=== PATIENT | male | born 1955 | race Hispanic/Latino ===

== ENCOUNTER 2018-07-06 06:01 | Inpatient (IN) | payer OTHER ==
--- NOTE | 2018-07-06 06:41 | ED PDOC ---
Arrival/HPI - General Historian: Patient - History of Present Illness Narrative History of Present Illness (Text): 07/06/18 06:37 Patient is a 62 yo male with no known medical history who presents with abdominal pain and bloating. Patient states that he started feeling upper abdo ana pain on Monday. He says this is associated with abdominal bloating. He also had one episode of dizziness on Monday while working out. The pain worsens when he leans forward. The pain goes away when he is lying flat. He reports that he works out daily and takes multiple supplements, including testosterone injections, which he has been doing for many years. He denies nausea, vomiting, diarrhea, and constipation. He denies appetite changes. He denies chest pain and palpitations. He notes increased work of breathing for the past 2 days. Patient states he has not seen a medical doctor in over 2 years. Time/Duration: < week Symptom Onset: Gradual Symptom Course: Worsening Severity Level: 7 <Azul Levin - Last Filed: 07/06/18 07:05> <Filipe Paige - Last Filed: 07/06/18 19:08> - General Chief Complaint: Chest Pain Time Seen by Provider: 07/06/18 06:36 Past Medical History - Provider Review Nursing Documentation Reviewed: Yes - Infectious Disease Hx of Infectious Diseases: None - Cardiac Hx Cardiac Disorders: No - Pulmonary Hx Respiratory Disorders: No - Neurological Hx Neurological Disorder: No - HEENT Hx HEENT Disorder: No - Renal Hx Renal Disorder: No - Endocrine/Metabolic Hx Endocrine Disorders: No - Hematological/Oncological Hx Blood Disorders: No - Integumentary Hx Dermatological Disorder: No - Musculoskeletal/Rheumatological Hx Musculoskeletal Disorders: No - Gastrointestinal Hx Gastrointestinal Disorders: No - Genitourinary/Gynecological Hx Genitourinary Disorders: No - Psychiatric Hx Psychophysiologic Disorder: No Hx Substance Use: No - Surgical History Other/Comment: right knee surgery - Anesthesia Hx Anesthesia: No <Azul Levin - Last Filed: 07/06/18 07:05> Family/Social History Family/Social History: CAD/MO (paternal- multiple deaths from MIs in 40s) Smoking Status: Never Smoked Hx Alcohol Use: No Hx Substance Use: No <Azul Levin - Last Filed: 07/06/18 07:05> Allergies/Home Meds <Azul Levin - Last Filed: 07/06/18 07:05> <ChristianajessicaFilipe - Last Filed: 07/06/18 19:08> Allergies/Adverse Reactions: Allergies No Known Allergies Allergy (Verified 12/10/16 13:55) Home Medications: Home Meds Medication Instructions Recorded Confirmed No Known Home Med 12/10/16 12/10/16 Review of Systems - Review of Systems Constitutional: absent: Fatigue, Fevers Eyes: absent: Vision Changes ENT: absent: Hearing Changes Respiratory: SOB. absent: Cough Cardiovascular: absent: Chest Pain, Palpitations, Edema Gastrointestinal: Abdominal Pain. absent: Constipation, Diarrhea, Nausea, Vomiting Genitourinary Male: absent: Dysuria, Hematuria Musculoskeletal: absent: Arthralgias, Myalgias Skin: absent: Rash, Pruritis, Skin Lesions Neurological: absent: Headache, Dizziness, Focal Weakness Endocrine: absent: Diaphoresis Hemo/Lymphatic: absent: Adenopathy Psychiatric: absent: Anxiety <Azul Levin - Last Filed: 07/06/18 07:05> Physical Exam Vital Signs Reviewed: Yes Vital Signs Temp Pulse Resp BP Pulse Ox 07/06/18 06:10 97.1 F L 180 H 20 140/110 H 96 Temperature: Afebrile Blood Pressure: Hypertensive Pulse: Tachycardic Respiratory Rate: Normal Appearance: Positive for: Non-Toxic, Comfortable Pain Distress: None Mental Status: Positive for: Alert and Oriented X 3 - Systems Exam Head: Present: Atraumatic, Normocephalic Pupils: Present: PERRL Extroacular Muscles: Present: EOMI Conjunctiva: Present: Normal Mouth: Present: Moist Mucous Membranes Respiratory/Chest: Present: Clear to Auscultation, Good Air Exchange Cardiovascular: Present: Tachycardic Abdomen: Present: Tenderness (mild upper). No: Distention, Rebound, Guarding Back: Present: Normal Inspection Upper Extremity: Present: Normal Inspection Lower Extremity: Present: Normal Inspection. No: Edema Neurological: Present: GCS=15, CN II-XII Intact, Speech Normal, Motor Func Grossly Intact, Normal Sensory Function Skin: Present: Warm, Dry, Normal Color Psychiatric: Present: Alert, Oriented x 3, Normal Insight, Normal Concentration, Normal Affect, Normal Mood <Azul Levin - Last Filed: 07/06/18 07:05> Vital Signs Temp Pulse Resp BP Pulse Ox 07/06/18 11:32 99.3 F 129 H 18 117/60 98 07/06/18 10:39 133 H 19 122/81 95 07/06/18 08:45 137 H 22 119/80 95 07/06/18 08:25 128/61 07/06/18 07:45 145 H 20 128/61 94 L 07/06/18 06:59 123 H 18 123/66 96 07/06/18 06:47 140 H 20 124/81 96 07/06/18 06:41 177 H 140/110 H 07/06/18 06:40 177 H 140/110 H 07/06/18 06:30 145 H 18 139/81 97 07/06/18 06:26 177 H 20 143/96 H 97 07/06/18 06:10 97.1 F L 180 H 20 140/110 H 96 <Filipe Paige - Last Filed: 07/06/18 19:08> Medical Decision Making ED Course and Treatment: 07/06/18 06:30 Patient noted to be tachycardic in 170s-180s. Attempted vagal maneuvers without improvement. Administered Adenosine 6 mg IVP without improvement. EKG sent to Dr. Álvarez who reads it as Atrial flutter. Administered Cardizem 20 mg IVP. HR decreased to 150s. Started Cardizem drip. 07/06/18 06:53 Administer another Cardizem 20 mg IVP. HR decreased to 120s-130s. - RAD Interpretation Radiology Orders: 07/06/18 06:35 CHEST PORTABLE [RAD] Stat Well Blower: ED Physician - EKG Interpretation EKG Interpretation (Text): 07/06/18 06:47 Atrial flutter (HR 178) Interpreted by ED Physician: Yes Type: 12 lead EKG Comparison: No previous EKG avail. - Medication Orders Current Medication Orders: Adenosine (Adenosine 6 Mg/2 Ml Inj) 6 mg IVP STAT STA Stop: 07/06/18 06:36 Diltiazem HCl (Cardizem) 20 mg IVP STAT STA Stop: 07/06/18 06:36 diltiaZEM IVPB 100mg in NS (Cardizem 100mg In Ns) 100 mls @ 5 mls/hr IV .Q20H PRN; Protocol PRN Reason: TITRATE PER MD ORDER <Azul Levin - Last Filed: 07/06/18 07:05> - Lab Interpretations Lab Results: PT 14.5 SECONDS (9.4-12.5) H 07/06/18 06:20 INR 1.28 07/06/18 06:20 APTT 37.6 Seconds (26.9-38.3) 07/06/18 14:20 Troponin I 0.16 ng/mL H* 07/06/18 09:24 NT-Pro-B Natriuret Pep 3400 pg/mL (0-450) H 07/06/18 06:20 Total Bilirubin 0.7 mg/dL (0.2-1.3) 07/06/18 06:20 AST 61 U/L (17-59) H 07/06/18 06:20 ALT 57 U/L (7-56) H 07/06/18 06:20 Alkaline Phosphatase 73 U/L (38-126) 07/06/18 06:20 Total Protein 6.9 g/dL (5.8-8.3) 07/06/18 06:20 Albumin 3.6 g/dL (3.0-4.8) 07/06/18 06:20 Globulin 3.3 gm/dL 07/06/18 06:20 Albumin/Globulin Ratio 1.1 (1.1-1.8) 07/06/18 06:20 Urine Color Yellow (YELLOW) 07/06/18 08:42 Urine Appearance Clear (CLEAR) 07/06/18 08:42 Urine pH 6.0 (4.7-8.0) 07/06/18 08:42 Ur Specific [place] 1.025 (1.005-1.035) 07/06/18 08:42 Urine Protein Trace mg/dL (<30 mg/dL) H 07/06/18 08:42 Urine Glucose (UA) Negative mg/dL (NEGATIVE) 07/06/18 08:42 Urine Ketones 15 mg/dL (NEGATIVE) H 07/06/18 08:42 Urine Blood Large (NEGATIVE) H 07/06/18 08:42 Urine Nitrate Negative (NEGATIVE) 07/06/18 08:42 Urine Bilirubin Small (NEGATIVE) H 07/06/18 08:42 Urine Urobilinogen 0.2 E.U./dL (<1 E.U./dL) 07/06/18 08:42 Ur Leukocyte Esterase Negative Carlos/uL (NEGATIVE) 07/06/18 08:42 Urine RBC 20 - 25 /hpf (0-2) H 07/06/18 08:42 Urine WBC 1 - 3 /hpf (0-6) 07/06/18 08:42 Ur Epithelial Cells None /hpf (0-5) 07/06/18 08:42 Urine Bacteria Mod /hpf (NONE) 07/06/18 08:42 - RAD Interpretation Radiology Orders: 07/06/18 06:35 CHEST PORTABLE [RAD] Stat - Medication Orders Current Medication Orders: Acetaminophen (Tylenol 325mg Tab) 650 mg PO Q6H PRN PRN Reason: Fever >100.4 F Famotidine (Pepcid) 20 mg PO 1000,2200 ZULY Last Admin: 07/06/18 10:24 Dose: 20 mg diltiaZEM IVPB 100mg in NS (Cardizem 100mg In Ns) 100 mls @ 5 mls/hr IV .Q20H PRN; Protocol PRN Reason: TITRATE PER MD ORDER Last Admin: 07/06/18 14:30 Dose: 20 mg/hr, 20 mls/hr eMAR Start Stop Document 07/06/18 14:30 [facility] (Rec: 07/06/18 14:50 [facility] [id number] Intravenous Solution Start Date 07/06/18 Start Time 14:30 MAR Pulse Rate Document 07/06/18 14:30 RAMOM (Rec: 07/06/18 14:50 [facility] [id number]) Pulse Rate Pulse Rate (60-90) 111 Titration Intervention Document 07/06/18 14:30 RAMOM (Rec: 07/06/18 14:50 [facility] [id number]) Titration Intake Cumulative Intake (Rx) 90 Waste Amount 0 Container Volume 100 Titration Dosing Titration Dose 20 IV Rate 20 Intake/Decrease Started/Running Cumulative Dose 90 Heparin Sodium/Sodium Chloride (Heparin 58452 Units/250ml 1/2 Normal Saline) 25,000 units in 250 mls @ 20.82 mls/hr IV .Q12H1M PRN; Protocol PRN Reason: ADJUST RATE PER PROTOCOL Last Titration: 07/06/18 16:50 Dose: 20 units/kg/hr, 23.133 mls/hr Titration Intervention Document 07/06/18 16:50 [facility] (Rec: 07/06/18 16:57 [facility] [id number]) Titration Intake Container Volume 27 Titration Dosing Titration Dose 20 IV Rate 23.133 Intake/Decrease Started Sodium Chloride (Sodium Chloride 0.9%) 1,000 mls @ 75 mls/hr IV .[id number] ZULY Last Admin: 07/06/18 12:27 Dose: 75 mls/hr eMAR Start Stop Document 07/06/18 12:27 RAMOM (Rec: 07/06/18 12:27 [facility] [id number]) Intravenous Solution Start Date 07/06/18 Start Time 12:30 Ondansetron HCl (Zofran Inj) 4 mg IVP Q6H PRN PRN Reason: Nausea/Vomiting Discontinued Medications Adenosine (Adenosine 6 Mg/2 Ml Inj) 6 mg IVP STAT STA Stop: 07/06/18 06:36 Last Admin: 07/06/18 06:40 Dose: 6 mg IVP Administration Document 07/06/18 06:40 MA (Rec: 07/06/18 06:40 [id number] Charges for Administration # of IVP Administrations 1 Aspirin (Aspirin Chewable) 324 mg PO STAT STA Stop: 07/06/18 07:20 Last Admin: 07/06/18 07:44 Dose: 324 mg Digoxin (Lanoxin) 0.25 mg IVP ONCE ONE Stop: 07/06/18 09:52 Last Admin: 07/06/18 10:23 Dose: 0.25 mg MAR Apical Pulse Rate Document 07/06/18 10:23 LA (Rec: 07/06/18 10:24 LA [id number]) Apical Pulse Rate Apical Pulse Rate (60-90 beats/min) 155 IVP Administration Document 07/06/18 10:23 LA (Rec: 07/06/18 10:24 LA [id number]) Charges for Administration # of IVP Administrations 1 Digoxin (Lanoxin) 0.25 mg IVP ONCE ONE Stop: 07/06/18 14:01 Last Admin: 07/06/18 13:08 Dose: 0.25 mg MAR Apical Pulse Rate Document 07/06/18 13:08 [facility] (Rec: 07/06/18 13:08 [facility] [id number]) Apical Pulse Rate Apical Pulse Rate (60-90 beats/min) 127 IVP Administration Document 07/06/18 13:08 [facility] (Rec: 07/06/18 13:08 [facility] [id number] Charges for Administration # of IVP Administrations 1 Diltiazem HCl (Cardizem) 20 mg IVP STAT STA Stop: 07/06/18 06:36 Last Admin: 07/06/18 06:40 Dose: 20 mg IVP Administration Document 07/06/18 06:40 MA (Rec: 07/06/18 06:40 MA [id number]) Charges for Administration # of IVP Administrations 1 MAR Pulse and Blood Pressure Document 07/06/18 06:40 MA (Rec: 07/06/18 06:40 MA [id number]) Pulse Pulse Rate (60-90) 177 Blood Pressure Blood Pressure (100/60-150/90) 140/110 Diltiazem HCl (Cardizem) 20 mg IVP STAT STA Stop: 07/06/18 06:54 Last Admin: 07/06/18 06:47 Dose: 20 mg IVP Administration Document 07/06/18 06:47 MA (Rec: 07/06/18 07:05 MA [id number]) Charges for Administration # of IVP Administrations 1 MAR Pulse and Blood Pressure Document 07/06/18 06:47 MA (Rec: 07/06/18 07:05 MA [id number]) Pulse Pulse Rate (60-90) 140 Blood Pressure Blood Pressure (100/60-150/90) 128/81 Furosemide (Lasix) 40 mg IVP STAT STA Stop: 07/06/18 07:53 Last Admin: 07/06/18 08:25 Dose: 40 mg MAR Blood Pressure Document 07/06/18 08:25 MA (Rec: 07/06/18 08:26 MA [id number]) Blood Pressure Blood Pressure (100/60-150/90) 128/61 IVP Administration Document 07/06/18 08:25 MA (Rec: 07/06/18 08:26 MA [id number]) Charges for Administration # of IVP Administrations 1 Heparin Sodium (Porcine) (Heparin) 4,000 units IV ONCE ONE; Protocol Stop: 07/06/18 07:51 Last Admin: 07/06/18 08:27 Dose: 4,000 units eMAR Start Stop Document 07/06/18 08:27 MA (Rec: 07/06/18 08:28 [facility] [id number] Intravenous Solution Start Date 07/06/18 Start Time 08:28 Heparin Sodium (Porcine) (Heparin) 4,400 units IV STAT STA Stop: 07/06/18 17:00 Last Admin: 07/06/18 17:07 Dose: 4,400 units eMAR Start Stop Document 07/06/18 17:07 RAM[facility] (Rec: 07/06/18 17:07 [id number] Intravenous Solution Start Date 07/06/18 Start Time 17:05 End Date 07/06/18 End time 17:10 Total Infusion Time 5 MAR aPTT Document 07/06/18 17:07 RAM[facility] (Rec: 07/06/18 17:07 [id number] aPTT aPTT (secs) 37.6 <Filipe Paige - Last Filed: 07/06/18 19:08> - PA / JAVA LEAD / Resident Statement GUILLERMO has reviewed & agrees with the documentation as recorded. GUILLERMO has examined the patient and agrees with the treatment plan. <Filipe Paige - Last Filed: 07/06/18 19:08> Disposition/Present on Arrival - Present on Arrival Any Indicators Present on Arrival: No History of DVT/PE: No History of Uncontrolled Diabetes: No Urinary Catheter: No History of Decub. Ulcer: No History Surgical Site Infection Following: None - Disposition Have Diagnosis and Disposition been Completed?: Yes Disposition Time: 07:05 Patient Plan: Admission, Telemetry <Azul Levin - Last Filed: 07/06/18 07:05> <Filipe Paige - Last Filed: 07/06/18 19:08> - Disposition Diagnosis: Atrial flutter with rapid ventricular response, NSTEMI (non-ST elevated myocardial infarction) Disposition: HOSPITALIZED Condition: SERIOUS
[2018-07-06 06:47] LABS: BASO # 0.03 K/mm3 (0.0-2.0); BASO % 0.2 % (0.0-3.0); EOS # 0.2 (0.0-0.7); HEMOGLOBIN 14.3 g/dL (14.0-18.0); LYMPH # 3.4 (1.2-3.4); LYMPH % 20.9 % (22.0-35.0); MEAN CELL VOLUME 92.2 fl (80.0-105.0); MEAN CORPUSCULAR HGB CONC 32.5 g/dl (31.0-37.0); MEAN PLATELET VOLUME 9.6 fl (7.0-11.0); MONO % 6.4 % (1.0-6.0); RBC 4.77 10^6/uL (3.5-6.1); RED CELL DISTRIBUTION WIDTH 15.6 % (11.5-14.5); WHITE BLOOD COUNT 16.2 10^3/uL (4.5-11.0)
[2018-07-06] MEDS: diltiaZEM IVPB 100mg in NS 100 ML IV PRN ×3 (06:50→20:59)
[2018-07-06 06:56] LABS: INR 1.28; PARTIAL THROMBOPLASTIN TIME 26.5 Seconds (26.9-38.3); PROTHROMBIN TIME 14.5 SECONDS (9.4-12.5)
[2018-07-06 06:58] LABS: ALB/GLOB RATIO 1.1 (1.1-1.8); ALBUMIN 3.6 g/dL (3.0-4.8); CALCIUM 8.1 mg/dL (8.4-10.5)
[2018-07-06 07:15] LABS: FREE T4 1.12 ng/dL (0.78-2.19)
[2018-07-06 07:18] LABS: CK-MB 4.9 ng/mL (0.0-3.6); TROPONIN I 0.15 ng/mL
[2018-07-06] MEDS ORDERED: Heparin25000 units/250ml 1/2NS 25,000 UNITS/250 ML BAG IV PRN (07:20)
--- NOTE | 2018-07-06 07:25 | ED PDOC ---
Physical Exam Vital Signs Temp Pulse Resp BP Pulse Ox 07/06/18 06:59 123 H 18 123/66 96 07/06/18 06:47 140 H 20 124/81 96 07/06/18 06:41 177 H 140/110 H 07/06/18 06:40 177 H 140/110 H 07/06/18 06:30 145 H 18 139/81 97 07/06/18 06:26 177 H 20 143/96 H 97 07/06/18 06:10 97.1 F L 180 H 20 140/110 H 96 Medical Decision Making ED Course and Treatment: 07/06/18 07:00 Case endorsed to me by Dr. Jamison. Pending labs and final disposition. 07/06/18 07:53 patient apparently presented to the ED with chief complaint of abdominal pain, found to be very tachycardic, ekg revealed atrial flutter with rvr. patient was medicated and eventually started on cardizem drip. troponin noted to be elevated and aspirin/heparin ordered by me. at this time the heart rate is 135 on laboratory monitor and i have asked the nurse to increase the cardizem drip to 10mg/hr and to repeat ekg once the heart rate is slower. 07/06/18 08:[address] grubbs, dr. higgins for cardiology, requests echo, agrees with icu admission 07/06/18 08:[address] Ruiz, assurance senior manager, who will see patient in consultation. 07/06/18 08:[address] higgins, topographic computator, would like hold on lab systems analyst and he will see the patient in consultation - Critical Care Critical Care Minutes: 60 minutes - Lab Interpretations Lab Results: PT 14.5 SECONDS (9.4-12.5) H 07/06/18 06:20 INR 1.28 07/06/18 06:20 APTT 26.5 Seconds (26.9-38.3) L 07/06/18 06:20 Troponin I 0.15 ng/mL H* 07/06/18 06:20 NT-Pro-B Natriuret Pep 3400 pg/mL (0-450) H 07/06/18 06:20 Total Bilirubin 0.7 mg/dL (0.2-1.3) 07/06/18 06:20 AST 61 U/L (17-59) H 07/06/18 06:20 ALT 57 U/L (7-56) H 07/06/18 06:20 Alkaline Phosphatase 73 U/L (38-126) 07/06/18 06:20 Total Protein 6.9 g/dL (5.8-8.3) 07/06/18 06:20 Albumin 3.6 g/dL (3.0-4.8) 07/06/18 06:20 Globulin 3.3 gm/dL 07/06/18 06:20 Albumin/Globulin Ratio 1.1 (1.1-1.8) 07/06/18 06:20 - RAD Interpretation Narrative RAD Interpretations (Text): 07/06/18 07:53 cxr my read: pulmonary edema, no ptx, no wide mediastinum Radiology Orders: 07/06/18 06:35 CHEST PORTABLE [RAD] Stat Solar Systems Designer: ED Physician - EKG Interpretation EKG Interpretation (Text): 07/06/18 07:52 ekg my read 0618: atrial flutter at 178 bpm, nml qrs, nml axis 07/06/18 08:22 ekg my read 0804: atrial flutter at 135 bpm, nml qrs, nml axis, lateral st depression Interpreted by ED Physician: Yes - Medication Orders Current Medication Orders: diltiaZEM IVPB 100mg in NS (Cardizem 100mg In Ns) 100 mls @ 5 mls/hr IV .Q20H PRN; Protocol PRN Reason: TITRATE PER MD ORDER Last Admin: 07/06/18 06:50 Dose: 5 mls/hr eMAR Start Stop Document 07/06/18 06:50 MA (Rec: 07/06/18 06:51 [place] [facility] [id number] Intravenous Solution Start Date 07/06/18 Start Time 06:48 Heparin Sodium/Sodium Chloride (Heparin 24790 Units/250ml 1/2 Normal Saline) 25,000 units in 250 mls @ 20.003 mls/hr IV .H27R69M PRN; Protocol PRN Reason: ADJUST RATE PER PROTOCOL Discontinued Medications Adenosine (Adenosine 6 Mg/2 Ml Inj) 6 mg IVP STAT STA Stop: 07/06/18 06:36 Last Admin: 07/06/18 06:40 Dose: 6 mg IVP Administration Document 07/06/18 06:40 MA (Rec: 07/06/18 06:40 [place] [facility] [id number] Charges for Administration # of IVP Administrations 1 Aspirin (Aspirin Chewable) 324 mg PO STAT STA Stop: 07/06/18 07:20 Diltiazem HCl (Cardizem) 20 mg IVP STAT STA Stop: 07/06/18 06:36 Last Admin: 07/06/18 06:40 Dose: 20 mg IVP Administration Document 07/06/18 06:40 MA (Rec: 07/06/18 06:40 [place] [facility] [id number] Charges for Administration # of IVP Administrations 1 MAR Pulse and Blood Pressure Document 07/06/18 06:40 MA (Rec: 07/06/18 06:40 [place] [facility] [id number] Pulse Pulse Rate (60-90) 177 Blood Pressure Blood Pressure (100/60-150/90) 140/110 Diltiazem HCl (Cardizem) 20 mg IVP STAT STA Stop: 07/06/18 06:54 Last Admin: 07/06/18 06:47 Dose: 20 mg IVP Administration Document 07/06/18 06:47 MA (Rec: 07/06/18 07:05 [place] [facility] [id number] Charges for Administration # of IVP Administrations 1 MAR Pulse and Blood Pressure Document 07/06/18 06:47 MA (Rec: 07/06/18 07:05 [place] [facility] [id number] Pulse Pulse Rate (60-90) 140 Blood Pressure Blood Pressure (100/60-150/90) 128/81 Heparin Sodium (Porcine) (Heparin) 4,000 units IV ONCE ONE; Protocol Stop: 07/06/18 07:21 - Scribe Statement The provider has reviewed the documentation as recorded by the Gilles Rios Provider Scribe Attestation: All medical record entries made by the Gilles were at my direction and personally dictated by me. I have reviewed the chart and agree that the record accurately reflects my personal performance of the history, physical exam, medical decision making, and the department course for this patient. I have also personally directed, reviewed, and agree with the discharge instructions and disposition. Disposition/Present on Arrival - Present on Arrival Any Indicators Present on Arrival: No History of DVT/PE: No History of Uncontrolled Diabetes: No Urinary Catheter: No History of Decub. Ulcer: No History Surgical Site Infection Following: None - Disposition Have Diagnosis and Disposition been Completed?: Yes Diagnosis: Atrial flutter with rapid ventricular response, NSTEMI (non-ST elevated myocardial infarction) Disposition: HOSPITALIZED Disposition Time: 08:05 Patient Plan: Admission, ICU Patient Problems: Current Active Problems Problem Status Onset Atrial flutter with rapid ventricular response Acute NSTEMI (non-ST elevated myocardial infarction) Acute Condition: FAIR Forms: Inherited Health (Divehi)
[2018-07-06 07:29] LABS: T3 0.93 ng/mL (0.97-1.69)
[2018-07-06] MEDS ORDERED: diltiaZEM IVPB 100mg in NS 100 ML IV PRN (08:15)
[2018-07-06] MEDS: Heparin25000 units/250ml 1/2NS 25,000 UNITS/250 ML BAG IV PRN ×2 (08:28→19:40)
[2018-07-06 08:54] LABS: URINE BILIRUBIN SMALL (NEGATIVE); URINE BLOOD LARGE (NEGATIVE); URINE GLUCOSE (UA) NEGATIVE (NEGATIVE); URINE LEUKOCYTE ESTERASE NEGATIVE Leu/uL (NEGATIVE); URINE PROTEIN TRACE mg/dL (<30 mg/dL); URINE UROBILINOGEN 0.2 E.U./dL (<1 E.U./dL)
[2018-07-06 09:12] LABS: URINE APPEARANCE CLEAR (CLEAR); URINE COLOR YELLOW (YELLOW)
[2018-07-06 09:15] LABS: URINE BACTERIA MOD /hpf; URINE RBC 20 - 25 /hpf (0-2)
[2018-07-06 09:26] LABS: BARBITURATES, UR NEGATIVE (NEGATIVE); BENZODIAZEPINES, UR NEGATIVE (NEGATIVE); OPIATES, UR NEGATIVE (NEGATIVE); PHENCYCLIDINE, UR NEGATIVE (NEGATIVE)
[2018-07-06] MEDS ORDERED: Digoxin 500 mcg/2ml (0.5 mg/2ml) Inj IVP ONE ×2 (09:51→14:00)
--- NOTE | 2018-07-06 10:23 | CP.PCM.CON ---
History of Present Illness - History of Present Illness History of Present Illness: MICU CONSULT NOTE HPI Patient is 62yo male with PMhx of steroid abuse, supplement usage, very active (lifts weights), presents from home with abdominal discomfort. Pt reports abd discomfort is diffuse, without any fever, chills, N/V/D. Pt found to be in new onset aflutter on EKG, started on Cardizem drip, and Heparin drip. Pt also given lasix 40mg IV X 1. Currently on Cardizem drip at 10mg/hr, HR 130s Seen by cardiology, Dr Garcia. Pt denies SOB, CP, palpitations, BROWN, dizziness, recent travel, LE swelling. No other constitutional symptoms. PMHx NONE PSHx knee Surgery FHx CAD Social denies smoking, EtOH, drug usep; uses creatinine, IV steroids Allergies NKDA ROS as above Review of Systems - Review of Systems Review of Systems: as per HPI Past Patient History - Infectious Disease Hx of Infectious Diseases: None - Past Social History Smoking Status: Never Smoked - CARDIAC Hx Cardiac Disorders: No - PULMONARY Hx Respiratory Disorders: No - NEUROLOGICAL Hx Neurological Disorder: No - HEENT Hx HEENT Problems: No - RENAL Hx Chronic Kidney Disease: No - ENDOCRINE/METABOLIC Hx Endocrine Disorders: No - HEMATOLOGICAL/ONCOLOGICAL Hx Blood Disorders: No - INTEGUMENTARY Hx Dermatological Problems: No - MUSCULOSKELETAL/RHEUMATOLOGICAL Hx Musculoskeletal Disorders: No - GASTROINTESTINAL Hx Gastrointestinal Disorders: No - GENITOURINARY/GYNECOLOGICAL Hx Genitourinary Disorders: No - PSYCHIATRIC Hx Psychophysiologic Disorder: No Hx Substance Use: No - SURGICAL HISTORY Other/Comment: right knee surgery - ANESTHESIA Hx Anesthesia: No Meds Allergies/Adverse Reactions: Allergies Allergy/AdvReac Type Severity Reaction Status Date / Time No Known Allergies Allergy Verified 12/10/16 13:55 - Medications Medications: Current Medications Digoxin (Lanoxin) 0.25 mg IVP ONCE ONE Stop: 07/06/18 14:01 Famotidine (Pepcid) 20 mg PO 1000,2200 ZULY diltiaZEM IVPB 100mg in NS (Cardizem 100mg In Ns) 100 mls @ 5 mls/hr IV .Q20H PRN; Protocol PRN Reason: TITRATE PER MD ORDER Last Admin: 07/06/18 06:50 Dose: 5 mls/hr Heparin Sodium/Sodium Chloride (Heparin 24661 Units/250ml 1/2 Normal Saline) 25,000 units in 250 mls @ 20.82 mls/hr IV .Q12H1M PRN; Protocol PRN Reason: ADJUST RATE PER PROTOCOL Last Admin: 07/06/18 08:28 Dose: 20.82 mls/hr Physical Exam - Constitutional Appears: Non-toxic, No Acute Distress - Head Exam Head Exam: NORMAL INSPECTION - Eye Exam Eye Exam: Normal appearance - ENT Exam ENT Exam: Mucous Membranes Moist - Neck Exam Neck exam: Positive for: Full Rom - Respiratory Exam Respiratory Exam: Clear to Auscultation Bilateral, NORMAL BREATHING PATTERN - Cardiovascular Exam Cardiovascular Exam: Tachycardia, Irregular Rhythm, +S1, +S2 - GI/Abdominal Exam GI & Abdominal Exam: Normal Bowel Sounds, Soft - Extremities Exam Extremities exam: Positive for: normal inspection - Back Exam Back exam: NORMAL INSPECTION - Neurological Exam Neurological exam: Alert, Oriented x3 - Psychiatric Exam Psychiatric exam: Normal Mood - Skin Skin Exam: Normal Color, Warm Results - Vital Signs Recent Vital Signs: Last Vital Signs Temp 97.1 F L 07/06/18 06:10 Pulse 137 H 07/06/18 08:45 Resp 22 07/06/18 08:45 BP 119/80 07/06/18 08:45 Pulse Ox 95 07/06/18 08:45 - Labs Result Diagrams: 07/06/18 06:20 07/06/18 06:20 Labs: Laboratory Results - last 24 hr 07/06/18 07/06/18 07/06/18 06:20 06:20 06:20 WBC 16.2 H RBC 4.77 Hgb 14.3 Hct 44.0 MCV 92.2 MCH 30.0 MCHC 32.5 RDW 15.6 H Plt Count 368 MPV 9.6 Neut % (Auto) 71.5 H Lymph % (Auto) 20.9 L [place] % (Auto) 6.4 H Eos % (Auto) 1.0 L Baso % (Auto) 0.2 Lymph # (Auto) 3.4 [place] # (Auto) 1.0 H Eos # (Auto) 0.2 Baso # (Auto) 0.03 Absolute Neuts (auto) 11.58 H PT 14.5 H INR 1.28 APTT 26.5 L Sodium 136 Potassium 5.0 Chloride 102 Carbon Dioxide 26 Anion Gap 14 BUN 24 H Creatinine 1.7 H Est GFR ( Amer) 50 Est GFR (Non-Af Amer) 41 Random Glucose 97 Calcium 8.1 L Magnesium 1.9 Total Bilirubin 0.7 AST 61 H ALT 57 H Alkaline Phosphatase 73 Lactate Dehydrogenase 564 Total Creatine Kinase 346 H CK-MB (CK-2) 4.9 H CK-MB (CK-2) % Cancelled Troponin I 0.15 H* NT-Pro-B Natriuret Pep 3400 H Total Protein 6.9 Albumin 3.6 Globulin 3.3 Albumin/Globulin Ratio 1.1 Free T4 Total T3 TSH 3rd Generation Urine Color Urine Appearance Urine pH Ur Specific [place] Urine Protein Urine Glucose (UA) Urine Ketones Urine Blood Urine Nitrate Urine Bilirubin Urine Urobilinogen Ur Leukocyte Esterase Urine RBC Urine WBC Ur Epithelial Cells Urine Bacteria Urine Opiates Screen Urine Methadone Screen Ur Barbiturates Screen Ur Phencyclidine Scrn Ur Amphetamines Screen U Benzodiazepines Scrn U Oth Cocaine Metabols U Cannabinoids Screen 07/06/18 07/06/18 07/06/18 06:20 08:42 08:42 WBC RBC Hgb Hct MCV MCH MCHC RDW Plt Count MPV Neut % (Auto) Lymph % (Auto) [place] % (Auto) Eos % (Auto) Baso % (Auto) Lymph # (Auto) [place] # (Auto) Eos # (Auto) Baso # (Auto) Absolute Neuts (auto) PT INR APTT Sodium Potassium Chloride Carbon Dioxide Anion Gap BUN Creatinine Est GFR ( Amer) Est GFR (Non-Af Amer) Random Glucose Calcium Magnesium Total Bilirubin AST ALT Alkaline Phosphatase Lactate Dehydrogenase Total Creatine Kinase CK-MB (CK-2) CK-MB (CK-2) % Troponin I NT-Pro-B Natriuret Pep Total Protein Albumin Globulin Albumin/Globulin Ratio Free T4 1.12 Total T3 0.93 L TSH 3rd Generation 3.65 Urine Color Yellow Urine Appearance Clear Urine pH 6.0 Ur Specific [place] 1.025 Urine Protein Trace H Urine Glucose (UA) Negative Urine Ketones 15 H Urine Blood Large H Urine Nitrate Negative Urine Bilirubin Small H Urine Urobilinogen 0.2 Ur Leukocyte Esterase Negative Urine RBC 20 - 25 H Urine WBC 1 - 3 Ur Epithelial Cells None Urine Bacteria Mod Urine Opiates Screen Negative Urine Methadone Screen Negative Ur Barbiturates Screen Negative Ur Phencyclidine Scrn Negative Ur Amphetamines Screen Negative U Benzodiazepines Scrn Negative U Oth Cocaine Metabols Negative U Cannabinoids Screen Negative - Imaging and Cardiology Chest x-ray Status: Image reviewed by me Assessment & Plan - Assessment and Plan (Free Text) Assessment: 62yo male with new onset Aflutter/Afib Aflutter/Afib VENKATA Steroid Abuse Abd pain - currently afebrile, HD stable, HR 130s, in NAD - Abd pain resolved - Seen by cardiology, consult appreciated Recommend: - supp o2 as needed, duonebs PRN - panculture, UCx, BCx, Check Procal - Rate control, Cardizem drip, Digoxin loading - Heparin drip - ECHO - cardiology consult - GI ppx - DVT ppx - Admit to CCU
--- NOTE | 2018-07-06 11:07 | RAD ---
Date of service: 07/06/2018 HISTORY: chest pain COMPARISON: No prior. FINDINGS: LUNGS: The lungs are well inflated. There is mild pulmonary venous congestion PLEURA: No pleural effusions or pneumothorax. CARDIOVASCULAR: There is moderate cardiomegaly with prominent central vasculature. No aortic atherosclerotic calcifications present. OSSEOUS STRUCTURES: Within normal limits for the patient's age. VISUALIZED UPPER ABDOMEN: Normal. OTHER FINDINGS: None. IMPRESSION: No active pulmonary disease. Moderate cardiomegaly and mild pulmonary venous congestion.
[2018-07-06] MEDS: Sodium Chloride 0.9% 1,000 ML IV SCH (12:27)
[2018-07-06 12:52] LABS: CK-MB 4.1 ng/mL (0.0-3.6)
[2018-07-06 13:09] VITALS: PULSE 127
[2018-07-06 15:55] VITALS: BMI 33.9
--- NOTE | 2018-07-06 16:57 | CARD ---
APPROVED REPORT Date of service: 07/06/2018 EKG Measurement Heart [id number] <Conclusion> Atrial flutter with variable AV block with premature ventricular or aberrantly conducted complexes Non specific T-wave changes Abnormal Electrocardiogram
--- NOTE | 2018-07-06 16:58 | CARD ---
APPROVED REPORT Date of service: 07/06/2018 EKG Measurement Heart [id number] <Conclusion> Atrial flutter with 2:1 block Non specific T-wave changes Abnormal Electrocardiogram
--- NOTE | 2018-07-06 16:58 | CARD ---
APPROVED REPORT Date of service: 07/06/2018 EKG Measurement Heart [id number] MA [id number] <Conclusion> Atrial flutter with 2:1 block Non specific T-wave changes Abnormal Electrocardiogram
--- NOTE | 2018-07-06 19:22 | CARD ---
APPROVED REPORT Date of service: 07/06/2018 EKG Measurement Heart [id number] <Conclusion> Atrial flutter with variable AV block with premature ventricular or aberrantly conducted complexes ST & T wave abnormalities Little change from previous tracing Abnormal ECG
[2018-07-06 21:46] LABS: HEPATITIS B SURFACE AG Negative (NEGATIVE)
[2018-07-06 21:52] LABS: HEPATITIS A IGM NEGATIVE (NEGATIVE); HEPATITIS B CORE AB NEGATIVE (NEGATIVE)
[2018-07-06 22:04] LABS: HEPATITIS C ANTIBODY NEGATIVE (NEGATIVE)
[2018-07-07] MEDS: diltiaZEM IVPB 100mg in NS 100 ML IV PRN (01:08)
[2018-07-07] MEDS: Sodium Chloride 0.9% 1,000 ML IV SCH ×2 (03:15→15:05)
[2018-07-07 05:23] VITALS: TEMP 98.6
--- NOTE | 2018-07-07 05:55 | CON ---
DATE: 07/06/2018 REQUESTING PHYSICIAN: Dr. Hollingsworth. REASON FOR CONSULTATION: Dyspnea, tachycardia. HISTORY OF PRESENT ILLNESS: This is a 62-year-old man with a history of borderline hypertension, who presented to the emergency room complaining of dyspnea and epigastric discomfort. He also had lightheadedness. He was noted to be in atrial flutter with variable conduction with heart rate in the 180s. He was started on IV Cardizem. His rate has slowed, but he remains in atrial flutter. He still feels somewhat lightheaded. His abdominal discomfort has improved. He denies any chest pain or severe dyspnea. He is unaware of any prior cardiac issues. PAST MEDICAL HISTORY: His past history is notable for the problems mentioned above. He underwent knee surgery involving his right knee many years ago for a meniscus tear. MEDICATIONS AT HOME: None. FAMILY HISTORY: Multiple paternal family members had premature heart disease in their 40s and 50s. SOCIAL HISTORY: He does not smoke or drink. He does lift heavy weights and goes to the gym regularly. He also uses testosterone, creatine, and other supplements. ALLERGIES: NONE. SOCIAL HISTORY: He does not smoke or drink. REVIEW OF SYSTEMS: A 12-point review of systems is otherwise unremarkable. He denies any chest discomfort, PND, or orthopnea. PHYSICAL EXAMINATION: GENERAL: He is a muscular middle-aged man. VITAL SIGNS: His blood pressure was 126/50 with a pulse of 120, in atrial flutter; respirations are 16; he is afebrile. HEENT: Head normocephalic, atraumatic. NECK: Supple, thick with no JVD present. CHEST: Few scattered rhonchi heard. HEART: PMI displaced laterally with a rapid rhythm. A soft systolic murmur is present in left sternal border. ABDOMEN: Soft, nontender. Normoactive bowel sounds. EXTREMITIES: No clubbing, cyanosis, edema. SKIN: Warm and dry. PSYCHIATRIC: Normal mood and affect. NEUROLOGIC: Alert and oriented x3. No gross motor or sensory deficits notable. DIAGNOSTIC DATA: White count 16.2, hemoglobin and hematocrit 14.3 and 44 with platelet count of 368,000. PT/PTT 14.5 and 26.5. Potassium 5, BUN and creatinine are 24 and 1.7. AST and ALT are 61 and 57. CK 346 with a negative MB fraction. Troponin 0.15, repeat is 0.16. TSH at 3.65. Toxicology screen was negative. Electrocardiogram reveals atrial flutter with rapid and variable conduction. Chest x-ray reveals increased cardiac silhouette with clear lung henry. IMPRESSION: 1. Atrial flutter with variable rapid conduction, not controlled with IV diltiazem. 2. Renal insufficiency, etiology to be determined. 3. 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 RECOMMENDATIONS: Telemetry monitoring is advisable. IV diltiazem will be continued for now. IV digoxin will be added for rate control at the present time. If he does not convert to sinus rhythm spontaneously, plans can be made for medical or chemical cardioversion. An echocardiogram will be obtained to assess his left ventricular size and function and degree of left ventricular hypertrophy present. Anticoagulant therapy will be continued for now and final decision made regarding long-term options should they be necessary. Followup evaluation of his elevated transaminases is advised as well. Thank you for this consultation. We will be happy to follow along through his hospital course. Deniz Glynn MD
[2018-07-07 06:01] LABS: BASO # 0.03 K/mm3 (0.0-2.0); BASO % 0.3 % (0.0-3.0); EOS # 0.3 (0.0-0.7); EOS % 2.5 % (1.5-5.0); HEMOGLOBIN 12.8 g/dL (14.0-18.0); LYMPH # 2.8 (1.2-3.4); LYMPH % 26.1 % (22.0-35.0); MEAN CELL VOLUME 91.2 fl (80.0-105.0); MEAN CORPUSCULAR HEMOGLOBIN 29.8 pg (25.0-35.0); MEAN CORPUSCULAR HGB CONC 32.7 g/dl (31.0-37.0); MEAN PLATELET VOLUME 9.2 fl (7.0-11.0); MONO # 0.9 (0.1-0.6); MONO % 8.6 % (1.0-6.0); RBC 4.3 10^6/uL (3.5-6.1); RED CELL DISTRIBUTION WIDTH 15.8 % (11.5-14.5); WHITE BLOOD COUNT 10.7 10^3/uL (4.5-11.0)
[2018-07-07 06:09] LABS: ALB/GLOB RATIO 1.1 (1.1-1.8); ALT/SGPT 51 U/L (7-56); AST/SGOT 39 U/L (17-59); BLOOD UREA NITROGEN 17 mg/dL (7-21); CALCIUM 7.3 mg/dL (8.4-10.5); GFR NON-AFRICAN AMERICAN 51; HDL CHOLESTEROL 8 mg/dL (29-60)
[2018-07-07 06:18] LABS: LDL CHOLESTEROL 137 mg/dL (0-129)
[2018-07-07] MEDS: Heparin25000 units/250ml 1/2NS 25,000 UNITS/250 ML BAG IV PRN ×2 (06:24→17:22)
[2018-07-07] MEDS ORDERED: Calcium Gluconate in NS 1 GM/50 ML BAG IV ONE (07:11)
[2018-07-07 08:24] LABS: IRON 48 ug/dL (45-180)
--- NOTE | 2018-07-07 08:27 | CARD ---
APPROVED REPORT Date of service: 07/06/2018 EXAM: Two-dimensional and M-mode echocardiogram with Doppler and color Doppler. INDICATION Atrial Fibrillation 2D DIMENSIONS Left Atrium (2D)4.5 (1.6-4.0cm)IVSd1.3 (0.7-1.1cm) LVDd5.4 (3.9-5.9cm)PWd1.4 (0.7-1.1cm) LVDs4.3 (2.5-4.0cm)FS (%) 20.5 % LVEF (%)42.0 (>50%) M-Mode DIMENSIONS Aortic Root4.10 (2.2-3.7cm)Aortic Cusp Exc.1.90 (1.5-2.0cm) Aortic Valve AoV Peak Zrsqiurt619.0cm/Janet Peak GR.7mmHg Mitral Valve E/A ratio0.0 TDI E/Lateral E'0.0E/Medial E'0.0 Pulmonary Valve PV Peak Vmbmxhjm13.7cm/sPV Peak Grad.1mmHg Tricuspid Valve TR Peak [id number]/sRAP [id number] Peak Gr.27mmHg [id number] LEFT VENTRICLE The left ventricle is normal size. There is mild to moderate concentric left ventricular hypertrophy. The systolic function is mildly to moderately impaired. There is global hypokinesis of the left ventricle. RIGHT VENTRICLE The right ventricle is normal size. The right ventricular systolic function is normal. ATRIA The left atrium is moderately dilated. The right atrium is moderately dilated. The interatrial septum is intact with no evidence for an atrial septal defect. AORTIC VALVE The aortic valve is mildly sclerotic. There is mild aortic regurgitation. There is no aortic valvular stenosis. MITRAL VALVE The mitral valve is mildly thickened. Mitral regurgitation is moderate. TRICUSPID VALVE The tricuspid valve is normal in structure. There is mild tricuspid regurgitation. PULMONIC VALVE The pulmonary valve is normal in structure. GREAT VESSELS The aortic root is normal in size. The IVC is normal in size and collapses >50% with inspiration. PERICARDIAL EFFUSION There is no pleural effusion. There is no pericardial effusion. <Conclusion> Biatrial enlargement. Mild to moderate concentric LVH. Patient in atrial flutter with variable ventricular response which limits ability to accurately assess LV function but it does appear mild to moderately reduced. Unable to assess segmetal wall motion adequately due to rhythm variablity. Mild AI. Moderate MR. Mild TR.
[2018-07-07 08:33] LABS: % IRON SATURATION 18 % (20-55); TOTAL IRON BINDING CAPACITY 265 ug/dL (261-462)
--- NOTE | 2018-07-07 09:46 | US ---
Date of service: 07/06/2018 HISTORY: elevated lfts and azotemia COMPARISON: None. TECHNIQUE: Sonographic evaluation of the abdomen. FINDINGS: LIVER: Enlarged, measuring 18.7 cm. Normal echogenicity of the liver parenchyma. No mass. No intrahepatic bile duct dilatation. GALLBLADDER: Unremarkable. No gallstones. COMMON BILE DUCT: Measures 5 mm. No stones. No dilatation. PANCREAS: Unremarkable as visualized. No mass. No ductal dilatation. RIGHT KIDNEY: Measures 12.5 x 4.5 x 6.7cm. Normal echogenicity. No calculus, mass, or hydronephrosis. LEFT KIDNEY: Measures 12.4 x 7.0 x 6.2cm. Normal echogenicity. No calculus, mass, or hydronephrosis. SPLEEN: Normal in size and contour. No mass. AORTA: No aneurysmal dilatation. IVC: Unremarkable. OTHER FINDINGS: Trace right pleural effusion. IMPRESSION: Mild hepatomegaly. Trace right pleural effusion.
--- NOTE | 2018-07-07 11:56 | CP.CCUPN ---
<Paulo Green - Last Filed: 07/07/18 11:48> CCU Subjective - Physician Review Subjective (Free Text): 07/07/18 11:48 Paulo Green PGY-1 Critical Care Progress Note Patient seen and evaluated at bedside. Patient currently on IVF and Heparin drip. Cardizem drip was discontinued overnight. Denies current chest pain, palpitations, shortness of breath, abdominal pain, nausea, vomiting, dizziness and headaches. CCU Objective - Vital Signs / Intake & Output Vital Signs (Last 4 hours): Vital Signs Pulse Resp BP Pulse Ox 07/07/18 08:00 82 19 121/72 95 Intake and Output (Last 8hrs): Intake & Output 07/06/18 07/07/18 07/07/18 22:59 06:59 14:59 Intake Total 1181 2002 Output Total 700 700 Balance 481 1302 Weight 118.75 kg Intake: IV 941 1762 Left Antecubital 525 900 cardizem 140 200 heparin 149 312 Oral 240 240 Output: Urine 700 700 Urine, Voided 700 700 Stool 0 Emesis 0 Other: # Voids Urine, Voided 2 3 # Bowel Movements 1 1 - Physical Exam Head: Positive for: Atraumatic, Normocephalic Pupils: Positive for: PERRL Extroacular Muscles: Positive for: EOMI Conjunctiva: Positive for: Normal Mouth: Positive for: Moist Mucous Membranes Respiratory/Chest: Positive for: Clear to Auscultation, Good Air Exchange Cardiovascular: Negative for: Tachycardic Abdomen: Negative for: Tenderness, Distention, Rebound, Guarding Back: Positive for: Normal Inspection Upper Extremity: Positive for: Normal Inspection Lower Extremity: Positive for: Normal Inspection. Negative for: Edema Neurological: Positive for: GCS=15, CN II-XII Intact, Speech Normal, Motor Func Grossly Intact, Normal Sensory Function Skin: Positive for: Warm, Dry, Normal Color Psychiatric: Positive for: Alert, Oriented x 3, Normal Insight, Normal Concentration, Normal Affect, Normal Mood - Medications Active Medications: Active Medications Generic Name Dose Route Start Last Admin Trade Name Freq PRN Reason Stop Dose Admin Acetaminophen 650 mg 07/06/18 13:24 Tylenol 325mg Tab PO Q6H PRN Fever >100.4 F Famotidine 20 mg 07/06/18 10:00 07/07/18 09:17 Pepcid PO 20 mg 1000,2200 ZULY Administration Heparin Sodium/Sodium Chloride 25,000 units in 250 mls @ 20.82 mls/hr 07/06/18 07:50 07/07/18 06:24 Heparin 90433 Units/250ml 1/2 Normal Saline IV 20 units/kg/hr .Q12H1M PRN 23.133 mls/hr ADJUST RATE PER PROTOCOL Administration Protocol 18 UNITS/KG/HR Sodium Chloride 1,000 mls @ 75 mls/hr 07/06/18 12:15 07/07/18 03:15 Sodium Chloride 0.9% IV 75 mls/hr .[id number] ZULY Administration Ondansetron HCl 4 mg 07/06/18 13:25 Zofran Inj IVP Q6H PRN Nausea/Vomiting - Patient Studies Lab Studies: Lab Studies 07/07/18 07/07/18 07/07/18 Range/Units 08:10 05:35 05:35 WBC (4.5-11.0) 10^3/uL RBC (3.5-6.1) 10^6/uL Hgb (14.0-18.0) g/dL Hct (42.0-52.0) % MCV (80.0-105.0) fl MCH (25.0-35.0) pg MCHC (31.0-37.0) g/dl RDW (11.5-14.5) % Plt Count (120.0-450.0) 10^3/uL MPV (7.0-11.0) fl Neut % (Auto) (50.0-68.0) % Lymph % (Auto) (22.0-35.0) % Reeves % (Auto) (1.0-6.0) % Eos % (Auto) (1.5-5.0) % Baso % (Auto) (0.0-3.0) % Lymph # (Auto) (1.2-3.4) Reeves # (Auto) (0.1-0.6) Eos # (Auto) (0.0-0.7) Baso # (Auto) (0.0-2.0) K/mm3 Absolute Neuts (auto) (1.4-6.5) APTT 69.4 H (26.9-38.3) Seconds Sodium 137 (132-148) mmol/L Potassium 3.9 (3.6-5.0) mmol/L Chloride 104 (98-107) mmol/L Carbon Dioxide 25 (21-33) mmol/L Anion Gap 12 (10-20) BUN 17 (7-21) mg/dL Creatinine 1.4 (0.8-1.5) mg/dl Est GFR ( Amer) > 60 Est GFR (Non-Af Amer) 51 Random Glucose 98 (70-110) mg/dL Calcium 7.3 L (8.4-10.5) mg/dL Phosphorus 3.4 (2.5-4.5) mg/dL Magnesium 2.0 (1.7-2.2) mg/dL Iron 48 (45-180) ug/dL TIBC 265 (261-462) ug/dL % Saturation 18 L (20-55) % Total Bilirubin 0.6 (0.2-1.3) mg/dL AST 39 (17-59) U/L ALT 51 (7-56) U/L Alkaline Phosphatase 62 (38-126) U/L Total Creatine Kinase (35-230) U/L CK-MB (CK-2) (0.0-3.6) ng/mL CK-MB (CK-2) % Total Protein 5.8 (5.8-8.3) g/dL Albumin 3.0 (3.0-4.8) g/dL Globulin 2.8 gm/dL Albumin/Globulin Ratio 1.1 (1.1-1.8) Triglycerides 205 H (35-160) mg/dL Cholesterol 157 (130-200) mg/dL LDL Cholesterol Direct 137 H (0-129) mg/dL HDL Cholesterol 8 L (29-60) mg/dL Procalcitonin (0.19-0.49) NG/ML Hepatitis A IgM Ab (NEGATIVE) Hep Bs Antigen (NEGATIVE) Hep B Core IgM Ab (NEGATIVE) Hepatitis C Antibody (NEGATIVE) 07/07/18 07/06/18 07/06/18 Range/Units 05:35 23:20 14:20 WBC 10.7 D (4.5-11.0) 10^3/uL RBC 4.30 (3.5-6.1) 10^6/uL Hgb 12.8 L (14.0-18.0) g/dL Hct 39.2 L (42.0-52.0) % MCV 91.2 (80.0-105.0) fl MCH 29.8 (25.0-35.0) pg MCHC 32.7 (31.0-37.0) g/dl RDW 15.8 H (11.5-14.5) % Plt Count 299 (120.0-450.0) 10^3/uL MPV 9.2 (7.0-11.0) fl Neut % (Auto) 62.5 (50.0-68.0) % Lymph % (Auto) 26.1 (22.0-35.0) % Reeves % (Auto) 8.6 H (1.0-6.0) % Eos % (Auto) 2.5 (1.5-5.0) % Baso % (Auto) 0.3 (0.0-3.0) % Lymph # (Auto) 2.8 (1.2-3.4) Reeves # (Auto) 0.9 H (0.1-0.6) Eos # (Auto) 0.3 (0.0-0.7) Baso # (Auto) 0.03 (0.0-2.0) K/mm3 Absolute Neuts (auto) 6.70 H (1.4-6.5) APTT 45.3 H (26.9-38.3) Seconds Sodium (132-148) mmol/L Potassium (3.6-5.0) mmol/L Chloride (98-107) mmol/L Carbon Dioxide (21-33) mmol/L Anion Gap (10-20) BUN (7-21) mg/dL Creatinine (0.8-1.5) mg/dl Est GFR ( Amer) Est GFR (Non-Af Amer) Random Glucose (70-110) mg/dL Calcium (8.4-10.5) mg/dL Phosphorus (2.5-4.5) mg/dL Magnesium (1.7-2.2) mg/dL Iron (45-180) ug/dL TIBC (261-462) ug/dL % Saturation (20-55) % Total Bilirubin (0.2-1.3) mg/dL AST (17-59) U/L ALT (7-56) U/L Alkaline Phosphatase (38-126) U/L Total Creatine Kinase (35-230) U/L CK-MB (CK-2) (0.0-3.6) ng/mL CK-MB (CK-2) % Total Protein (5.8-8.3) g/dL Albumin (3.0-4.8) g/dL Globulin gm/dL Albumin/Globulin Ratio (1.1-1.8) Triglycerides (35-160) mg/dL Cholesterol (130-200) mg/dL LDL Cholesterol Direct (0-129) mg/dL HDL Cholesterol (29-60) mg/dL Procalcitonin (0.19-0.49) NG/ML Hepatitis A IgM Ab Negative (NEGATIVE) Hep Bs Antigen Negative (NEGATIVE) Hep B Core IgM Ab Negative (NEGATIVE) Hepatitis C Antibody Negative (NEGATIVE) 07/06/18 07/06/18 07/06/18 Range/Units 14:20 11:50 11:50 WBC (4.5-11.0) 10^3/uL RBC (3.5-6.1) 10^6/uL Hgb (14.0-18.0) g/dL Hct (42.0-52.0) % MCV (80.0-105.0) fl MCH (25.0-35.0) pg MCHC (31.0-37.0) g/dl RDW (11.5-14.5) % Plt Count (120.0-450.0) 10^3/uL MPV (7.0-11.0) fl Neut % (Auto) (50.0-68.0) % Lymph % (Auto) (22.0-35.0) % Reeves % (Auto) (1.0-6.0) % Eos % (Auto) (1.5-5.0) % Baso % (Auto) (0.0-3.0) % Lymph # (Auto) (1.2-3.4) Reeves # (Auto) (0.1-0.6) Eos # (Auto) (0.0-0.7) Baso # (Auto) (0.0-2.0) K/mm3 Absolute Neuts (auto) (1.4-6.5) APTT 37.6 (26.9-38.3) Seconds Sodium (132-148) mmol/L Potassium (3.6-5.0) mmol/L Chloride (98-107) mmol/L Carbon Dioxide (21-33) mmol/L Anion Gap (10-20) BUN (7-21) mg/dL Creatinine (0.8-1.5) mg/dl Est GFR ( Amer) Est GFR (Non-Af Amer) Random Glucose (70-110) mg/dL Calcium (8.4-10.5) mg/dL Phosphorus (2.5-4.5) mg/dL Magnesium (1.7-2.2) mg/dL Iron (45-180) ug/dL TIBC (261-462) ug/dL % Saturation (20-55) % Total Bilirubin (0.2-1.3) mg/dL AST (17-59) U/L ALT (7-56) U/L Alkaline Phosphatase (38-126) U/L Total Creatine Kinase 317 H (35-230) U/L CK-MB (CK-2) 4.1 H (0.0-3.6) ng/mL CK-MB (CK-2) % Cancelled Total Protein (5.8-8.3) g/dL Albumin (3.0-4.8) g/dL Globulin gm/dL Albumin/Globulin Ratio (1.1-1.8) Triglycerides (35-160) mg/dL Cholesterol (130-200) mg/dL LDL Cholesterol Direct (0-129) mg/dL HDL Cholesterol (29-60) mg/dL Procalcitonin 0.09 L (0.19-0.49) NG/ML Hepatitis A IgM Ab (NEGATIVE) Hep Bs Antigen (NEGATIVE) Hep B Core IgM Ab (NEGATIVE) Hepatitis C Antibody (NEGATIVE) Laboratory Results - last 24 hr 07/06/18 07/06/18 07/06/18 11:50 11:50 14:20 WBC RBC Hgb Hct MCV MCH MCHC RDW Plt Count MPV Neut % (Auto) Lymph % (Auto) Reeves % (Auto) Eos % (Auto) Baso % (Auto) Lymph # (Auto) Reeves # (Auto) Eos # (Auto) Baso # (Auto) Absolute Neuts (auto) APTT 37.6 Sodium Potassium Chloride Carbon Dioxide Anion Gap BUN Creatinine Est GFR ( Amer) Est GFR (Non-Af Amer) Random Glucose Calcium Phosphorus Magnesium Iron TIBC % Saturation Total Bilirubin AST ALT Alkaline Phosphatase Total Creatine Kinase 317 H CK-MB (CK-2) 4.1 H CK-MB (CK-2) % Cancelled Total Protein Albumin Globulin Albumin/Globulin Ratio Triglycerides Cholesterol LDL Cholesterol Direct HDL Cholesterol Procalcitonin 0.09 L Hepatitis A IgM Ab Hep Bs Antigen Hep B Core IgM Ab Hepatitis C Antibody 07/06/18 07/06/18 07/07/18 14:20 23:20 05:35 WBC 10.7 D RBC 4.30 Hgb 12.8 L Hct 39.2 L MCV 91.2 MCH 29.8 MCHC 32.7 RDW 15.8 H Plt Count 299 MPV 9.2 Neut % (Auto) 62.5 Lymph % (Auto) 26.1 Reeves % (Auto) 8.6 H Eos % (Auto) 2.5 Baso % (Auto) 0.3 Lymph # (Auto) 2.8 Reeves # (Auto) 0.9 H Eos # (Auto) 0.3 Baso # (Auto) 0.03 Absolute Neuts (auto) 6.70 H APTT 45.3 H Sodium Potassium Chloride Carbon Dioxide Anion Gap BUN Creatinine Est GFR ( Amer) Est GFR (Non-Af Amer) Random Glucose Calcium Phosphorus Magnesium Iron TIBC % Saturation Total Bilirubin AST ALT Alkaline Phosphatase Total Creatine Kinase CK-MB (CK-2) CK-MB (CK-2) % Total Protein Albumin Globulin Albumin/Globulin Ratio Triglycerides Cholesterol LDL Cholesterol Direct HDL Cholesterol Procalcitonin Hepatitis A IgM Ab Negative Hep Bs Antigen Negative Hep B Core IgM Ab Negative Hepatitis C Antibody Negative 07/07/18 07/07/18 07/07/18 05:35 05:35 08:10 WBC RBC Hgb Hct MCV MCH MCHC RDW Plt Count MPV Neut % (Auto) Lymph % (Auto) Reeves % (Auto) Eos % (Auto) Baso % (Auto) Lymph # (Auto) Reeves # (Auto) Eos # (Auto) Baso # (Auto) Absolute Neuts (auto) APTT 69.4 H Sodium 137 Potassium 3.9 Chloride 104 Carbon Dioxide 25 Anion Gap 12 BUN 17 Creatinine 1.4 Est GFR ( Amer) > 60 Est GFR (Non-Af Amer) 51 Random Glucose 98 Calcium 7.3 L Phosphorus 3.4 Magnesium 2.0 Iron 48 TIBC 265 % Saturation 18 L Total Bilirubin 0.6 AST 39 ALT 51 Alkaline Phosphatase 62 Total Creatine Kinase CK-MB (CK-2) CK-MB (CK-2) % Total Protein 5.8 Albumin 3.0 Globulin 2.8 Albumin/Globulin Ratio 1.1 Triglycerides 205 H Cholesterol 157 LDL Cholesterol Direct 137 H HDL Cholesterol 8 L Procalcitonin Hepatitis A IgM Ab Hep Bs Antigen Hep B Core IgM Ab Hepatitis C Antibody Radiology Impressions: Radiology Impressions Abdomen Ultrasound 07/06/18 13:27 IMPRESSION: Mild hepatomegaly. Trace right pleural effusion. EKG/Cardiology Studies: Cardiology / EKG Studies 07/07/18 06:00 EKG [ELECTROCARDIOGRAM] Routine Comment: Reason For Exam: A flutter Review of Systems - Review of Systems Review of Systems: 12 point ROS completed and negative except as described in HPI. Critical Care Progress Note - Nutrition Nutrition: Nutrition Category Date Time Status Heart Healthy Diet [DIET] Diets 07/06/18 Lunch Active Assessment/Plan - Assessment and Plan (Free Text) Assessment: Mr. Gagnon is a 62 year old male with new onset Aflutter/Afib, currently being monitored in the ICU. Patient remains hemodynamically stable in no acute distress. Cardio - Aflutter/Afib on admission, converted to NSR in EKG this AM @80 bpm - Cardizem drip discontinued - Received Digoxin 0.25 twice yesterday - currently afebrile, HD stable, HR 80s, in NAD - C/w Heparin drip - Echo revealed EF 42% with moderate concentric LVH, moderately reduced LV function, moderate MR - Dr. Glynn on consult Nephro: - VENKATA, improved - C/w NS @ 75 cc/hr - Calcium repleted, f/u repeat CMP GI: - Abd pain resolved - Tolerating HHD - Abd U/S revealed mild hepatomegaly GI ppx: Pepcid PO BID DVT ppx: Hep drip Patient seen, case reviewed and plan approved by Dr. Melody Ruiz. Paulo Green, PGY-1 <Jamie Ruiz - Last Filed: 07/07/18 14:56> CCU Objective - Vital Signs / Intake & Output Intake and Output (Last 8hrs): Intake & Output 05/31/19 06/01/19 06/01/19 22:59 06:59 14:59 Intake Total 1181 2001 Output Total 700 700 Balance 481 1302 Weight 118.75 kg Intake: IV 941 1762 Left Antecubital 525 900 cardizem 140 200 heparin 149 312 Oral 240 240 Output: Urine 700 700 Urine, Voided 700 700 Stool 0 Emesis 0 Other: # Voids Urine, Voided 2 3 # Bowel Movements 1 1 - Medications Active Medications: Active Medications Generic Name Dose Route Start Last Admin Trade Name Freq PRN Reason Stop Dose Admin Acetaminophen 650 mg 07/06/18 13:24 Tylenol 325mg Tab PO Q6H PRN Fever >100.4 F Apixaban 5 mg 07/07/18 18:00 Eliquis PO BID [facility] Protocol Famotidine 20 mg 07/06/18 10:00 07/07/18 09:17 Pepcid PO 20 mg 1000,2200 ZULY Administration Heparin Sodium/Sodium Chloride 25,000 units in 250 mls @ 20.82 mls/hr 07/06/18 07:50 07/07/18 06:24 Heparin 95025 Units/250ml 1/2 Normal Saline IV 20 units/kg/hr .Q12H1M PRN 23.133 mls/hr ADJUST RATE PER PROTOCOL Administration Protocol 18 UNITS/KG/HR Sodium Chloride 1,000 mls @ 75 mls/hr 07/06/18 12:15 07/07/18 03:15 Sodium Chloride 0.9% IV 75 mls/hr .[id number] ZULY Administration Metoprolol Tartrate 25 mg 07/07/18 17:00 Lopressor PO [facility] Ondansetron HCl 4 mg 07/06/18 13:25 Zofran Inj IVP Q6H PRN Nausea/Vomiting - Patient Studies Lab Studies: Microbiology Studies 07/06/18 14:30 Blood Culture - Preliminary Blood NO GROWTH AFTER 24 HOURS Lab Studies 07/07/18 07/07/18 07/07/18 Range/Units 12:00 12:00 08:10 WBC (4.5-11.0) 10^3/uL RBC (3.5-6.1) 10^6/uL Hgb (14.0-18.0) g/dL Hct (42.0-52.0) % MCV (80.0-105.0) fl MCH (25.0-35.0) pg MCHC (31.0-37.0) g/dl RDW (11.5-14.5) % Plt Count (120.0-450.0) 10^3/uL MPV (7.0-11.0) fl Neut % (Auto) (50.0-68.0) % Lymph % (Auto) (22.0-35.0) % Reeves % (Auto) (1.0-6.0) % Eos % (Auto) (1.5-5.0) % Baso % (Auto) (0.0-3.0) % Lymph # (Auto) (1.2-3.4) Reeves # (Auto) (0.1-0.6) Eos # (Auto) (0.0-0.7) Baso # (Auto) (0.0-2.0) K/mm3 Absolute Neuts (auto) (1.4-6.5) APTT 56.3 H (26.9-38.3) Seconds Sodium 138 (132-148) mmol/L Potassium 4.3 (3.6-5.0) mmol/L Chloride 103 (98-107) mmol/L Carbon Dioxide 27 (21-33) mmol/L Anion Gap 12 (10-20) BUN 15 (7-21) mg/dL Creatinine 1.4 (0.8-1.5) mg/dl Est GFR ( Amer) > 60 Est GFR (Non-Af Amer) 51 Random Glucose 106 (70-110) mg/dL Calcium 7.8 L (8.4-10.5) mg/dL Phosphorus (2.5-4.5) mg/dL Magnesium (1.7-2.2) mg/dL Iron (45-180) ug/dL TIBC (261-462) ug/dL % Saturation (20-55) % Ferritin 302.0 ng/mL Total Bilirubin 0.6 (0.2-1.3) mg/dL AST 37 (17-59) U/L ALT 44 (7-56) U/L Alkaline Phosphatase 57 (38-126) U/L Total Protein 6.0 (5.8-8.3) g/dL Albumin 3.0 (3.0-4.8) g/dL Globulin 3.0 gm/dL Albumin/Globulin Ratio 1.0 L (1.1-1.8) Triglycerides (35-160) mg/dL Cholesterol (130-200) mg/dL LDL Cholesterol Direct (0-129) mg/dL HDL Cholesterol (29-60) mg/dL Vitamin B12 186 L (239-931) pg/mL Folate 4.3 ng/mL Procalcitonin (0.19-0.49) NG/ML Cortisol AM Sample (4.46-22.7) ug/dL Urine Myoglobin Hepatitis A IgM Ab (NEGATIVE) Hep Bs Antigen (NEGATIVE) Hep B Core IgM Ab (NEGATIVE) Hepatitis C Antibody (NEGATIVE) 07/07/18 07/07/18 07/07/18 Range/Units 08:10 05:35 05:35 WBC (4.5-11.0) 10^3/uL RBC (3.5-6.1) 10^6/uL Hgb (14.0-18.0) g/dL Hct (42.0-52.0) % MCV (80.0-105.0) fl MCH (25.0-35.0) pg MCHC (31.0-37.0) g/dl RDW (11.5-14.5) % Plt Count (120.0-450.0) 10^3/uL MPV (7.0-11.0) fl Neut % (Auto) (50.0-68.0) % Lymph % (Auto) (22.0-35.0) % Reeves % (Auto) (1.0-6.0) % Eos % (Auto) (1.5-5.0) % Baso % (Auto) (0.0-3.0) % Lymph # (Auto) (1.2-3.4) Reeves # (Auto) (0.1-0.6) Eos # (Auto) (0.0-0.7) Baso # (Auto) (0.0-2.0) K/mm3 Absolute Neuts (auto) (1.4-6.5) APTT 69.4 H (26.9-38.3) Seconds Sodium (132-148) mmol/L Potassium (3.6-5.0) mmol/L Chloride (98-107) mmol/L Carbon Dioxide (21-33) mmol/L Anion Gap (10-20) BUN (7-21) mg/dL Creatinine (0.8-1.5) mg/dl Est GFR ( Amer) Est GFR (Non-Af Amer) Random Glucose (70-110) mg/dL Calcium (8.4-10.5) mg/dL Phosphorus (2.5-4.5) mg/dL Magnesium (1.7-2.2) mg/dL Iron 48 (45-180) ug/dL TIBC 265 (261-462) ug/dL % Saturation 18 L (20-55) % Ferritin ng/mL Total Bilirubin (0.2-1.3) mg/dL AST (17-59) U/L ALT (7-56) U/L Alkaline Phosphatase (38-126) U/L Total Protein (5.8-8.3) g/dL Albumin (3.0-4.8) g/dL Globulin gm/dL Albumin/Globulin Ratio (1.1-1.8) Triglycerides (35-160) mg/dL Cholesterol (130-200) mg/dL LDL Cholesterol Direct (0-129) mg/dL HDL Cholesterol (29-60) mg/dL Vitamin B12 (239-931) pg/mL Folate ng/mL Procalcitonin (0.19-0.49) NG/ML Cortisol AM Sample 12.9 (4.46-22.7) ug/dL Urine Myoglobin Hepatitis A IgM Ab (NEGATIVE) Hep Bs Antigen (NEGATIVE) Hep B Core IgM Ab (NEGATIVE) Hepatitis C Antibody (NEGATIVE) 07/07/18 07/07/18 07/06/18 Range/Units 05:35 05:35 23:20 WBC 10.7 D (4.5-11.0) 10^3/uL RBC 4.30 (3.5-6.1) 10^6/uL Hgb 12.8 L (14.0-18.0) g/dL Hct 39.2 L (42.0-52.0) % MCV 91.2 (80.0-105.0) fl MCH 29.8 (25.0-35.0) pg MCHC 32.7 (31.0-37.0) g/dl RDW 15.8 H (11.5-14.5) % Plt Count 299 (120.0-450.0) 10^3/uL MPV 9.2 (7.0-11.0) fl Neut % (Auto) 62.5 (50.0-68.0) % Lymph % (Auto) 26.1 (22.0-35.0) % Reeves % (Auto) 8.6 H (1.0-6.0) % Eos % (Auto) 2.5 (1.5-5.0) % Baso % (Auto) 0.3 (0.0-3.0) % Lymph # (Auto) 2.8 (1.2-3.4) Reeves # (Auto) 0.9 H (0.1-0.6) Eos # (Auto) 0.3 (0.0-0.7) Baso # (Auto) 0.03 (0.0-2.0) K/mm3 Absolute Neuts (auto) 6.70 H (1.4-6.5) APTT 45.3 H (26.9-38.3) Seconds Sodium 137 (132-148) mmol/L Potassium 3.9 (3.6-5.0) mmol/L Chloride 104 (98-107) mmol/L Carbon Dioxide 25 (21-33) mmol/L Anion Gap 12 (10-20) BUN 17 (7-21) mg/dL Creatinine 1.4 (0.8-1.5) mg/dl Est GFR ( Amer) > 60 Est GFR (Non-Af Amer) 51 Random Glucose 98 (70-110) mg/dL Calcium 7.3 L (8.4-10.5) mg/dL Phosphorus 3.4 (2.5-4.5) mg/dL Magnesium 2.0 (1.7-2.2) mg/dL Iron (45-180) ug/dL TIBC (261-462) ug/dL % Saturation (20-55) % Ferritin ng/mL Total Bilirubin 0.6 (0.2-1.3) mg/dL AST 39 (17-59) U/L ALT 51 (7-56) U/L Alkaline Phosphatase 62 (38-126) U/L Total Protein 5.8 (5.8-8.3) g/dL Albumin 3.0 (3.0-4.8) g/dL Globulin 2.8 gm/dL Albumin/Globulin Ratio 1.1 (1.1-1.8) Triglycerides 205 H (35-160) mg/dL Cholesterol 157 (130-200) mg/dL LDL Cholesterol Direct 137 H (0-129) mg/dL HDL Cholesterol 8 L (29-60) mg/dL Vitamin B12 (239-931) pg/mL Folate ng/mL Procalcitonin (0.19-0.49) NG/ML Cortisol AM Sample (4.46-22.7) ug/dL Urine Myoglobin Hepatitis A IgM Ab (NEGATIVE) Hep Bs Antigen (NEGATIVE) Hep B Core IgM Ab (NEGATIVE) Hepatitis C Antibody (NEGATIVE) 07/06/18 07/06/18 07/06/18 Range/Units 14:20 14:20 12:40 WBC (4.5-11.0) 10^3/uL RBC (3.5-6.1) 10^6/uL Hgb (14.0-18.0) g/dL Hct (42.0-52.0) % MCV (80.0-105.0) fl MCH (25.0-35.0) pg MCHC (31.0-37.0) g/dl RDW (11.5-14.5) % Plt Count (120.0-450.0) 10^3/uL MPV (7.0-11.0) fl Neut % (Auto) (50.0-68.0) % Lymph % (Auto) (22.0-35.0) % Reeves % (Auto) (1.0-6.0) % Eos % (Auto) (1.5-5.0) % Baso % (Auto) (0.0-3.0) % Lymph # (Auto) (1.2-3.4) Reeves # (Auto) (0.1-0.6) Eos # (Auto) (0.0-0.7) Baso # (Auto) (0.0-2.0) K/mm3 Absolute Neuts (auto) (1.4-6.5) APTT 37.6 (26.9-38.3) Seconds Sodium (132-148) mmol/L Potassium (3.6-5.0) mmol/L Chloride (98-107) mmol/L Carbon Dioxide (21-33) mmol/L Anion Gap (10-20) BUN (7-21) mg/dL Creatinine (0.8-1.5) mg/dl Est GFR ( Amer) Est GFR (Non-Af Amer) Random Glucose (70-110) mg/dL Calcium (8.4-10.5) mg/dL Phosphorus (2.5-4.5) mg/dL Magnesium (1.7-2.2) mg/dL Iron (45-180) ug/dL TIBC (261-462) ug/dL % Saturation (20-55) % Ferritin ng/mL Total Bilirubin (0.2-1.3) mg/dL AST (17-59) U/L ALT (7-56) U/L Alkaline Phosphatase (38-126) U/L Total Protein (5.8-8.3) g/dL Albumin (3.0-4.8) g/dL Globulin gm/dL Albumin/Globulin Ratio (1.1-1.8) Triglycerides (35-160) mg/dL Cholesterol (130-200) mg/dL LDL Cholesterol Direct (0-129) mg/dL HDL Cholesterol (29-60) mg/dL Vitamin B12 (239-931) pg/mL Folate ng/mL Procalcitonin (0.19-0.49) NG/ML Cortisol AM Sample (4.46-22.7) ug/dL Urine Myoglobin TNP Hepatitis A IgM Ab Negative (NEGATIVE) Hep Bs Antigen Negative (NEGATIVE) Hep B Core IgM Ab Negative (NEGATIVE) Hepatitis C Antibody Negative (NEGATIVE) 07/06/18 Range/Units 11:50 WBC (4.5-11.0) 10^3/uL RBC (3.5-6.1) 10^6/uL Hgb (14.0-18.0) g/dL Hct (42.0-52.0) % MCV (80.0-105.0) fl MCH (25.0-35.0) pg MCHC (31.0-37.0) g/dl RDW (11.5-14.5) % Plt Count (120.0-450.0) 10^3/uL MPV (7.0-11.0) fl Neut % (Auto) (50.0-68.0) % Lymph % (Auto) (22.0-35.0) % Reeves % (Auto) (1.0-6.0) % Eos % (Auto) (1.5-5.0) % Baso % (Auto) (0.0-3.0) % Lymph # (Auto) (1.2-3.4) Reeves # (Auto) (0.1-0.6) Eos # (Auto) (0.0-0.7) Baso # (Auto) (0.0-2.0) K/mm3 Absolute Neuts (auto) (1.4-6.5) APTT (26.9-38.3) Seconds Sodium (132-148) mmol/L Potassium (3.6-5.0) mmol/L Chloride (98-107) mmol/L Carbon Dioxide (21-33) mmol/L Anion Gap (10-20) BUN (7-21) mg/dL Creatinine (0.8-1.5) mg/dl Est GFR ( Amer) Est GFR (Non-Af Amer) Random Glucose (70-110) mg/dL Calcium (8.4-10.5) mg/dL Phosphorus (2.5-4.5) mg/dL Magnesium (1.7-2.2) mg/dL Iron (45-180) ug/dL TIBC (261-462) ug/dL % Saturation (20-55) % Ferritin ng/mL Total Bilirubin (0.2-1.3) mg/dL AST (17-59) U/L ALT (7-56) U/L Alkaline Phosphatase (38-126) U/L Total Protein (5.8-8.3) g/dL Albumin (3.0-4.8) g/dL Globulin gm/dL Albumin/Globulin Ratio (1.1-1.8) Triglycerides (35-160) mg/dL Cholesterol (130-200) mg/dL LDL Cholesterol Direct (0-129) mg/dL HDL Cholesterol (29-60) mg/dL Vitamin B12 (239-931) pg/mL Folate ng/mL Procalcitonin 0.09 L (0.19-0.49) NG/ML Cortisol AM Sample (4.46-22.7) ug/dL Urine Myoglobin Hepatitis A IgM Ab (NEGATIVE) Hep Bs Antigen (NEGATIVE) Hep B Core IgM Ab (NEGATIVE) Hepatitis C Antibody (NEGATIVE) Laboratory Results - last 24 hr 07/06/18 07/06/18 07/06/18 11:50 12:40 14:20 WBC RBC Hgb Hct MCV MCH MCHC RDW Plt Count MPV Neut % (Auto) Lymph % (Auto) Reeves % (Auto) Eos % (Auto) Baso % (Auto) Lymph # (Auto) Reeves # (Auto) Eos # (Auto) Baso # (Auto) Absolute Neuts (auto) APTT 37.6 Sodium Potassium Chloride Carbon Dioxide Anion Gap BUN Creatinine Est GFR ( Amer) Est GFR (Non-Af Amer) Random Glucose Calcium Phosphorus Magnesium Iron TIBC % Saturation Ferritin Total Bilirubin AST ALT Alkaline Phosphatase Total Protein Albumin Globulin Albumin/Globulin Ratio Triglycerides Cholesterol LDL Cholesterol Direct HDL Cholesterol Vitamin B12 Folate Procalcitonin 0.09 L Cortisol AM Sample Urine Myoglobin TNP Hepatitis A IgM Ab Hep Bs Antigen Hep B Core IgM Ab Hepatitis C Antibody 07/06/18 07/06/18 07/07/18 14:20 23:20 05:35 WBC 10.7 D RBC 4.30 Hgb 12.8 L Hct 39.2 L MCV 91.2 MCH 29.8 MCHC 32.7 RDW 15.8 H Plt Count 299 MPV 9.2 Neut % (Auto) 62.5 Lymph % (Auto) 26.1 Reeves % (Auto) 8.6 H Eos % (Auto) 2.5 Baso % (Auto) 0.3 Lymph # (Auto) 2.8 Reeves # (Auto) 0.9 H Eos # (Auto) 0.3 Baso # (Auto) 0.03 Absolute Neuts (auto) 6.70 H APTT 45.3 H Sodium Potassium Chloride Carbon Dioxide Anion Gap BUN Creatinine Est GFR ( Amer) Est GFR (Non-Af Amer) Random Glucose Calcium Phosphorus Magnesium Iron TIBC % Saturation Ferritin Total Bilirubin AST ALT Alkaline Phosphatase Total Protein Albumin Globulin Albumin/Globulin Ratio Triglycerides Cholesterol LDL Cholesterol Direct HDL Cholesterol Vitamin B12 Folate Procalcitonin Cortisol AM Sample Urine Myoglobin Hepatitis A IgM Ab Negative Hep Bs Antigen Negative Hep B Core IgM Ab Negative Hepatitis C Antibody Negative 07/07/18 07/07/18 07/07/18 05:35 05:35 05:35 WBC RBC Hgb Hct MCV MCH MCHC RDW Plt Count MPV Neut % (Auto) Lymph % (Auto) Reeves % (Auto) Eos % (Auto) Baso % (Auto) Lymph # (Auto) Reeves # (Auto) Eos # (Auto) Baso # (Auto) Absolute Neuts (auto) APTT 69.4 H Sodium 137 Potassium 3.9 Chloride 104 Carbon Dioxide 25 Anion Gap 12 BUN 17 Creatinine 1.4 Est GFR ( Amer) > 60 Est GFR (Non-Af Amer) 51 Random Glucose 98 Calcium 7.3 L Phosphorus 3.4 Magnesium 2.0 Iron TIBC % Saturation Ferritin Total Bilirubin 0.6 AST 39 ALT 51 Alkaline Phosphatase 62 Total Protein 5.8 Albumin 3.0 Globulin 2.8 Albumin/Globulin Ratio 1.1 Triglycerides 205 H Cholesterol 157 LDL Cholesterol Direct 137 H HDL Cholesterol 8 L Vitamin B12 Folate Procalcitonin Cortisol AM Sample 12.9 Urine Myoglobin Hepatitis A IgM Ab Hep Bs Antigen Hep B Core IgM Ab Hepatitis C Antibody 07/07/18 07/07/18 07/07/18 08:10 08:10 12:00 WBC RBC Hgb Hct MCV MCH MCHC RDW Plt Count MPV Neut % (Auto) Lymph % (Auto) Reeves % (Auto) Eos % (Auto) Baso % (Auto) Lymph # (Auto) Reeves # (Auto) Eos # (Auto) Baso # (Auto) Absolute Neuts (auto) APTT Sodium 138 Potassium 4.3 Chloride 103 Carbon Dioxide 27 Anion Gap 12 BUN 15 Creatinine 1.4 Est GFR ( Amer) > 60 Est GFR (Non-Af Amer) 51 Random Glucose 106 Calcium 7.8 L Phosphorus Magnesium Iron 48 TIBC 265 % Saturation 18 L Ferritin 302.0 Total Bilirubin 0.6 AST 37 ALT 44 Alkaline Phosphatase 57 Total Protein 6.0 Albumin 3.0 Globulin 3.0 Albumin/Globulin Ratio 1.0 L Triglycerides Cholesterol LDL Cholesterol Direct HDL Cholesterol Vitamin B12 186 L Folate 4.3 Procalcitonin Cortisol AM Sample Urine Myoglobin Hepatitis A IgM Ab Hep Bs Antigen Hep B Core IgM Ab Hepatitis C Antibody 07/07/18 12:00 WBC RBC Hgb Hct MCV MCH MCHC RDW Plt Count MPV Neut % (Auto) Lymph % (Auto) Reeves % (Auto) Eos % (Auto) Baso % (Auto) Lymph # (Auto) Reeves # (Auto) Eos # (Auto) Baso # (Auto) Absolute Neuts (auto) APTT 56.3 H Sodium Potassium Chloride Carbon Dioxide Anion Gap BUN Creatinine Est GFR ( Amer) Est GFR (Non-Af Amer) Random Glucose Calcium Phosphorus Magnesium Iron TIBC % Saturation Ferritin Total Bilirubin AST ALT Alkaline Phosphatase Total Protein Albumin Globulin Albumin/Globulin Ratio Triglycerides Cholesterol LDL Cholesterol Direct HDL Cholesterol Vitamin B12 Folate Procalcitonin Cortisol AM Sample Urine Myoglobin Hepatitis A IgM Ab Hep Bs Antigen Hep B Core IgM Ab Hepatitis C Antibody Radiology Impressions: Radiology Impressions Abdomen Ultrasound 07/06/18 13:27 IMPRESSION: Mild hepatomegaly. Trace right pleural effusion. EKG/Cardiology Studies: Cardiology / EKG Studies 07/07/18 06:00 EKG [ELECTROCARDIOGRAM] Routine Comment: Reason For Exam: A flutter Critical Care Progress Note - Nutrition Nutrition: Nutrition Category Date Time Status Heart Healthy Diet [DIET] Diets 07/06/18 Lunch Active Addendum Addendum: 07/07/18 14:56 MICU Attending Addendum: Patient seen and examined with housestaff, case discussed on rounds. I agree with resident note above with the following additions/exceptions: 62yo male with new onset Aflutter/Afib stablized now. converted to NSR. etiology unclear. possbily from steroid use and/or drugs used for body building. cardiology on board, f/u recs transtion from hep drip to eliquies by cardio TNI elevated likely from demand but pt should have outpatient cath f/u ECHO *hematuria on admissoin - would spin urine and consult nephro ok to transfer to tele Rest of care as per resident note above Jamie Ruiz MD Attending Pulmonary Critical Care Sleep Medicine
[2018-07-07 12:23] LABS: ALT/SGPT 44 U/L (7-56); AST/SGOT 37 U/L (17-59); BLOOD UREA NITROGEN 15 mg/dL (7-21); CALCIUM 7.8 mg/dL (8.4-10.5); GFR NON-AFRICAN AMERICAN 51
[2018-07-07 13:46] LABS: FOLATE 4.3 ng/mL
--- NOTE | 2018-07-07 15:33 | PN ---
DATE: 07/07/2018 SUBJECTIVE: The patient is seen lying in bed in the CCU. He converted to sinus rhythm overnight. He remains on IV heparin and fluids. CURRENT MEDICATIONS: Include IV heparin, Pepcid. PHYSICAL EXAMINATION: GENERAL: He is a muscular middle-aged man. VITAL SINGS: Blood pressure is 120/70 with a pulse of 80 in sinus, respirations of 14. He is afebrile. HEENT: Normocephalic, atraumatic. NECK: No JVD. CHEST: Few scattered rhonchi. HEART: PMI displaced laterally with a systolic murmur at the lower left sternal border and apex. ABDOMEN: Soft and nontender with normoactive bowel sounds. EXTREMITIES: No edema. DIAGNOSTIC DATA: Potassium 3.9, BUN and creatinine 17 and 1.4. White count is 10.7, hematocrit 12.8 and 39.2 with a platelet count of 299,000. PTT is 69.4. Cholesterol is 157 with an LDL 137, triglycerides of 205 and HDL of 8. Electrocardiogram reveals sinus rhythm with anterolateral T wave inversions and possible anterolateral ischemia cannot be excluded. Echocardiogram was reviewed and was a limited study due to tachycardia and rhythm disturbance, but did show evidence of biatrial enlargement, [id number] concentric LVH was present. LV systolic function appeared to be mild to moderately reduced, moderate mitral regurgitation as well as mild tricuspid and aortic insufficiency were noted. IMPRESSION: 1. Recent paroxysmal atrial flutter closely converted to sinus rhythm. 2. No probable mild to moderate left ventricular systolic dysfunction, exact etiology uncertain. 3. Left ventricular hypertrophy, possibly due to untreated hypertension versus heavy weightlifting program. 4. Renal insufficiency appears somewhat improved with hydration. RECOMMENDATIONS: 1. Oral Eliquis therapy will be initiating continue for at least 6 weeks post cardioversion. Beta-tushar therapy will be initiated for both rate control, should atrial flutter recur as well as for treatment of LVH and LV dysfunction. 2. Transfer to telemetry is reasonable at this time. An eventual recess of his LV function will be planned as well as evaluation for potential ischemic heart disease with stress testing as an outpatient. The need for avoidance of heavy weightlifting was discussed with him and the potential health risks in that regard was discussed. He was advised to discontinue all supplement use which he currently uses as part of his weightlifting program. I will continue to follow and make further recommendations as appropriate. Deniz Glynn MD ANGELINA
[2018-07-07 17:47] VITALS: BP 139/79; PULSE 95; RESP 18; O2SAT 95
--- NOTE | 2018-07-07 20:48 | CARD ---
APPROVED REPORT Date of service: 07/07/2018 EKG Measurement Heart [id number] <Conclusion> Normal sinus rhythm ST & T wave abnormalities Abnormal ECG
== END 2018-07-07 20:00 | disposition home or self-care (01) | DRG 281 ==
LOC: ED 06:01 → ERH 08:07 → CCU 11:49 → 2RNO 07-07 15:19
PROVIDERS: ADMIT Internal Medicine; ATTEND Internal Medicine
DX: I21.4 Non-ST elevation (NSTEMI) myocardial infarction (principal); I48.92 Unspecified atrial flutter; N17.9 Acute kidney failure, unspecified; I48.91 Unspecified atrial fibrillation; I51.7 Cardiomegaly; Z82.49 Family history of ischemic heart disease and other diseases of the circulatory system; R16.0 Hepatomegaly, not elsewhere classified; F55.3 Abuse of steroids or hormones; I08.3 Combined rheumatic disorders of mitral, aortic and tricuspid valves